=== PATIENT | female | born 1965 | race African-American/Black ===

== ENCOUNTER 2023-05-22 12:01 | Emergency (ER) | payer OTHER ==
[~2023-05-22] VITALS: Ht 160 cm; Wt 76.7 kg
[2023-05-22 12:15] VITALS: BP 123/75; PULSE 68; RESP 16; TEMP 98.3; O2SAT 98
[2023-05-22] MEDS ORDERED: HYDR-4009 MT (14:43)
== END 2023-05-22 15:18 | disposition home or self-care (01) ==
LOC: ER 12:01
DX: M54.2 Cervicalgia (principal); Z98.890 Other specified postprocedural states
CPT/HCPCS: 99282